=== PATIENT | female | born 1990 | race Caucasian/White ===

== ENCOUNTER 2020-02-01 00:46 | Emergency (ER) | payer BC ==
[~2020-02-01] VITALS: Ht 172.7 cm; Wt 87.3 kg
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
[2020-02-01] MEDS ORDERED: ONDANSETRON PF 4 MG/2 ML VIAL. IVP ONE ×2 (01:30→03:00)
[2020-02-01] MEDS ORDERED: MORPHINE SULFATE 2 MG/ML DISP.SYRIN. IV ONE (01:30)
[2020-02-01 01:50] VITALS: BP 127/73
[2020-02-01] MEDS ORDERED: IV NORMAL SALINE 1,000ML 1,000 ML IV ONE (02:00)
[2020-02-01] MEDS ORDERED: MORPHINE SULFATE 4 MG/ML DISP.SYRIN. IV ONE (02:00)
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
[2020-02-01] MEDS ORDERED: HYDR-3165 PO (02:11)
[2020-02-01] MEDS ORDERED: NAPR-682 PO (02:11)
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
== END 2020-02-01 02:40 | disposition home or self-care (01) ==
LOC: ER 00:46
DX: S42.002A Fracture of unspecified part of left clavicle, initial encounter for closed fracture (principal); S01.01XA Laceration without foreign body of scalp, initial encounter; V86.69XA Passenger of other special all-terrain or other off-road motor vehicle injured in nontraffic accident, initial encounter; Y93.I9 Activity, other involving external motion; Y92.89 Other specified places as the place of occurrence of the external cause; Y99.8 Other external cause status
CPT/HCPCS: 12001; 70450; 72125; 73000; 73030; 96361; 96374; 96375; 96376; 99285; J2270; J2405; J7030